=== PATIENT | female | born 1990 | race African-American/Black ===

== ENCOUNTER 2018-11-26 12:00 | Emergency (ER) | payer MEDICAID ==
[~2018-11-26] VITALS: Ht 160 cm; Wt 135.0 kg
[~2018-11-26 12:00] MED LIST: CEPH500C2; IBUP-2029; SULF1TAB48; TC1C15
[2018-11-26 12:16] VITALS: BP 145/93
== END 2018-11-26 17:49 | disposition left against medical advice (07) ==
LOC: ER 12:00
DX: M54.9 Dorsalgia, unspecified (principal); M25.561 Pain in right knee; Z53.21 Procedure and treatment not carried out due to patient leaving prior to being seen by health care provider